=== PATIENT | female | born 1945 | race African-American/Black ===

== ENCOUNTER 2017-10-09 09:32 | Inpatient (IN) | payer OTHER ==
[2017-09-26 14:31] VITALS: BMI 34.0
--- NOTE | 2017-09-26 15:01 | PAT Medication Instructions ---
Service Date Sep 26, 2017. Current Home Medication List Albuterol Hfa (Ventolin Hfa), 2-4 PUFFS INH Q6H PRN for SOB/Wheezing Amlodipine (Norvasc), 10 MG PO QAM Fish Oil ([place]-3), 1 CAP PO QAM Ysmeqgrvwmg-Vzhabjnkgzk-Ewq C- (Glucosamine Chondroitin), 1,500 UNITS PO QAM Hydralazine Hcl (Apresoline), 1 TAB PO BID Multivitamin (Multivitamin), 1 TAB PO QAM Omeprazole (Prilosec), 20 MG PO QPM Oxybutynin Chloride (Ditropan), 5 MG PO QPM Medication Instructions For Your Scheduled Surgery - Hold the following medications 2 weeks prior to surgery: Fish Oil ([place]-3), 1 CAP PO QAM Fzjzjcqywts-Vkmfxmbluhb-Unc C- (Glucosamine Chondroitin), 1,500 UNITS PO QAM - Hold the following medications the morning of surgery: Multivitamin (Multivitamin), 1 TAB PO QAM - Take the following medications the morning of surgery with a sip of water: Albuterol Hfa (Ventolin Hfa), 2-4 PUFFS INH Q6H PRN for SOB/Wheezing (if needed , and bring it with you to the hospital) Amlodipine (Norvasc), 10 MG PO QAM Hydralazine Hcl (Apresoline), 1 TAB PO BID - Take the following medications as scheduled the night before surgery: Albuterol Hfa (Ventolin Hfa), 2-4 PUFFS INH Q6H PRN for SOB/Wheezing (if needed) Hydralazine Hcl (Apresoline), 1 TAB PO BID Omeprazole (Prilosec), 20 MG PO QPM Oxybutynin Chloride (Ditropan), 5 MG PO QPM If you have any questions please call us at [phone] or [phone] or [phone]
--- NOTE | 2017-09-26 16:05 | DIAGNOSTIC IMAGING REPORT ---
TWO VIEW CHEST CLINICAL HISTORY: Preoperative examination. FINDINGS: PA and lateral chest radiographs are obtained No prior studies are available for comparison at the time of dictation. The cardiomediastinal silhouette is unremarkable. There is atherosclerotic calcification of the thoracic aorta. There are low lung volumes and bibasilar atelectasis. Scattered calcified granulomas are observed. No airspace consolidation is seen typical for pneumonia and there is no pleural effusion. There is no pneumothorax. The skeletal structures are osteopenic. Degenerative change is noted throughout the thoracic spine. A surgical anchor is noted in the left humeral head. IMPRESSION: Low lung volumes with no active disease in the chest. Electronically signed by: Shakir Laura M.D. 09/26/2017 4:04 PM Dictated Date/Time: 09/26/2017 4:03 PM
[2017-09-26 16:15] LABS: BASO % 0.2 %; BASO ABS # 0.01 K/uL (0-0.2); EOS % 1.6 %; EOS ABS # 0.08 K/uL (0-0.5); HEMOGLOBIN 13.8 g/dL (12.0-16.0); IG# 0.01 K/uL (0.00-0.02); LYMPH % 38.6 %; LYMPH ABS # 1.96 K/uL (1.2-3.4); MEAN CORPUSCULAR HGB CONC 32.9 g/dl (32-36); MEAN PLATELET VOLUME 10.4 fL (7.4-10.4); MONO % 7.7 %; MONO ABS # 0.39 K/uL (0.11-0.59); NEUT % 51.7 %; NEUT ABS # 2.63 K/uL (1.4-6.5); PLATELET COUNT 247 K/uL (130-400); RED CELL DISTRIBUTION WIDTH CV 14.9 % (11.5-14.5); RED CELL DISTRIBUTION WIDTH SD 44.8 fL (36.4-46.3); WHITE BLOOD COUNT 5.08 K/uL (4.8-10.8)
[2017-09-26 16:22] LABS: CALCIUM 9.3 mg/dl (8.5-10.1); CREATININE 1.06 mg/dl (0.60-1.20); POTASSIUM 4.1 mmol/L (3.5-5.1)
[~2017-10-09] VITALS: Ht 165.1 cm; Wt 93.8 kg
[~2017-10-09 09:32] MED LIST: ACETAMINOPHEN 500 MG TAB PO SCH; AMLO-114 PO; CEFAZOLIN 2000MG IV PUSH 15 ML IV SCH; CeleBREX 200 MG CAP PO SCH; DTR/5 PO; GABAPENTIN 300 MG CAP PO SCH; GLUC1CAP35 PO; HYDR-4715 PO; LACTATED RINGER'S 1000ML 1,000 ML IV SCH; MULT-506 PO; OMEG10007 PO; PRLSR20 PO; VNTHFA/IN INH
[2017-10-09 10:15] VITALS: BP 182/81; PULSE 59; TEMP 36.8; O2SAT 97; Ht 165.1 cm; Wt 93.8 kg
[2017-10-09] MEDS ORDERED: ONDANSETRON INJ 2 MG/ML 2 ML VIAL ONE ×2 (10:27→13:30)
[2017-10-09] MEDS ORDERED: NEOSTIGMINE METHYLSULFATE 1 MG/ML 10ML VIAL ONE (10:27)
[2017-10-09] MEDS ORDERED: LIDOCAINE HCL 2% 2 ML VIAL (20MG/ML) ONE (10:27)
[2017-10-09] MEDS ORDERED: EpHEDrine SULFATE 50MG/5ML SYR ONE (10:27)
[2017-10-09] MEDS ORDERED: PROPOFOL IV EMULSION 10 MG/ML 20 ML VIAL ONE (10:27)
[2017-10-09] MEDS ORDERED: DEXAMETHASONE SOD INJ 4 MG/ML VIAL ONE (10:27)
[2017-10-09] MEDS ORDERED: ROCURONIUM BROMIDE 10 MG/ML 5 ML VIAL ONE (10:27)
[2017-10-09] MEDS ORDERED: PHENYLEPHRINE 100MCG/ML 5ML SYR ONE (10:27)
[2017-10-09] MEDS ORDERED: LARYING-O-JET KIT (LTA) ONE (10:27)
[2017-10-09] MEDS ORDERED: GLYCOPYRROLATE INJ 0.2 MG/ML VIAL ONE (10:27)
[2017-10-09] MEDS ORDERED: FENTANYL CITRATE INJ 50 MCG/1 ML 2 ML VIAL ONE (10:28)
[2017-10-09] MEDS ORDERED: MIDAZOLAM HCL 1 MG/ML 2ML VIAL ONE (10:28)
[2017-10-09] MEDS ORDERED: SIMV20TA2 PO (10:29)
[2017-10-09] MEDS ORDERED: DILT-113 PO (10:29)
[2017-10-09] MEDS ORDERED: SCOPOLAMINE 1.5 MG TDSY TD ONE (11:44)
[2017-10-09] MEDS ORDERED: BACITRACIN 50000 UNIT VIAL ONE (12:30)
[2017-10-09] MEDS ORDERED: EpINEphrine INJ 1MG/ML AMP 1 MG/ML AMP ONE (12:31)
[2017-10-09] MEDS ORDERED: BUPIVACAINE 0.5 % 5 MG/1 ML MPF 30ML VIAL ONE (12:31)
--- NOTE | 2017-10-09 12:32 | History & Physical Bridge Note ---
H&P Re-Evaluation Bridge Note: I have examined the patient, reviewed the History & Physical and in the interval since the performance of the History & Physical I have noted the following changes of clinical significance: No changes noted
--- NOTE | 2017-10-09 12:33 | History and Physical ---
History & Physical Date October 09, 2017. Chief Complaint Back and leg pain History of Present Illness The patient is a 72 year old female with complaints of back and leg pain Additional History Hepatic Disease: No Endocrine Disorder: No Kidney Disease: No Hypertension: Yes Heart Disease: No Bleeding Tendencies: No Infectious Diseases: No Allergies Coded Allergies: No Known Allergies (Verified , 10/09/17) Home Medications Scheduled Amlodipine (Norvasc), 10 MG PO QAM Diltiazem Hcl Ext Rel (Tiazac), 180 MG PO QAM Fish Oil ([place]-3), 1 CAP PO QAM Uzhzcltldwp-Ullnouqpxum-Jmm C- (Glucosamine Chondroitin), 1,500 UNITS PO QAM Hydralazine Hcl (Apresoline), 1 TAB PO BID Multivitamin (Multivitamin), 1 TAB PO QAM Oxybutynin Chloride (Ditropan), 5 MG PO QPM Simvastatin (Zocor), 20 MG PO QPM Scheduled PRN Albuterol Hfa (Ventolin Hfa), 2-4 PUFFS INH Q6H PRN for SOB/Wheezing Physical Examination Skin: warm/dry, no rash Eyes: normal inspection, EOMI, sclerae normal ENT: normal ENT inspection, pharynx normal Head: normocephalic, atraumatic Neck: supple, no adenopathy, trachea midline Respiratory/Chest: lungs clear, normal breath sounds, no respiratory distress Cardiovascular: regular rate, rhythm, no edema, no murmur Abdomen / GI: normal bowel sounds, non tender Back: normal inspection Extremities: normal inspection, normal range of motion Neurologic/Psych: no motor/sensory deficits, alert, normal reflexes, oriented x 3 Diagnosis Lumbar spinal stenosis with neurogenic claudication Plan of Treatment L3-S1 decompression and fusion
[2017-10-09] MEDS ORDERED: HYDROmorphone INJ 2 MG/ML SYR/VIAL ONE (13:29)
[2017-10-09] MEDS ORDERED: FLOSEAL HEMOSTATIC MATRIX 10ML TOP ONE (14:55)
[2017-10-09] MEDS ORDERED: SODIUM CHLORIDE 0.9% 1000ML 1,000 ML IV SCH (15:09)
--- NOTE | 2017-10-09 15:09 | [facility] Operative Report ---
Operative Report Operative Date October 09, 2017. Pre-Operative Diagnosis Lumbar spinal stenosis with neurogenic claudication Post-Operative Diagnosis same as preop Procedure(s) Performed 1. Lumbar decompression medial facetectomies foraminotomies L2-3 L3-4 L4-5. #2 posterior spinal fusion L3-4 L4-5. #3 placement of posterior segmental instrumentation L3-4 L4-5. #4 interbody fusion L4-5. #5 placement of titanium cage 12 x 26 mm at L4-5. #6 placement of locally harvested autograft in the posterior lateral gutters. #7 placement InFUSE collagen sponge, mass graft in the posterior lateral gutters and ostial amp in the interbody space. Surgeon Dr. Tam Henriqeuz Sales Support Advisor Surgeon(s) Cait Fritz PA-C Estimated Blood Loss 200ml Findings Severe spinal stenosis with spondylolisthesis Specimens None per Surgeon Anesthesia Type General Description of Procedure Patient was met with preoperatively case discussed all questions addressed. After informed consent obtained patient was taken to the operative suite underwent intubation and placed in a prone position the Rene table on top of the Bacilio frame. All bony prominences well-padded eyes inspected to ensure no external pressure placed upon the. This point the lumbar spine was prepped and draped in normal sterile fashion. Sharp dissection with the assistance of Bovie cautery was performed on November exposing the lamina and transverse processes of L3-L4 and L5 bilaterally. From a caudal to cephalad fashion complete laminectomy of L4 L3 and partial laminectomy of L2 is performed addressing severe lateral recess and foraminal stenosis. Pedicle screws in place and L3-L4-L5 bilaterally with the assistance of fluoroscopy and the purposes dale placed. Through a transforaminal approach on the right knee discectomy of L4-5 was performed endplates created to subcortical bleeding bone and a 12 x 26 mm titanium cage filled with ostial amp bone graft tapped in position. The rods then compressed locked into final position bilaterally. The transverse processes of L3-L4-L5 burred to subcortical bleeding bone. Infuse collagen sponge mass graft and local autograft placed in the posterior gutters. A 15 round LUIS drain inserted. Incision was then closed with 1 Vicryl fascia 2-0 Vicryl subcutaneous and 4 Monocryl for fashion closure Steri-Strips sterile dressings placed. Patient will continue PACU stable condition. Please note Cait Reilly was present throughout the entire procedure involved in patient positioning complex portions of the surgery and fashion closure. I attest to the content of the Intraoperative Record and any orders documented therein. Any exceptions are noted below.
[2017-10-09] MEDS ORDERED: NALOXONE HCL 0.4 MG/1 ML VIAL/CARP IV PRN (15:15)
[2017-10-09] MEDS ORDERED: DO NOT ADMINISTER FLU VACCINE PRN (15:15)
[2017-10-09] MEDS ORDERED: FAMOTIDINE 20 MG TAB PO PRN (15:15)
[2017-10-09] MEDS ORDERED: HYDROmorphone HCL 0.5MG/ML 50 ML CASSETTE IV PRN (15:15)
[2017-10-09] MEDS ORDERED: METOCLOPRAMIDE HCL INJ 5 MG/ML 2 ML VIAL IV PRN (15:15)
[2017-10-09] MEDS ORDERED: ALUMINUM/MAGNESIUM SUSP 30 ML UDC PO PRN (15:15)
[2017-10-09] MEDS ORDERED: PROMETHAZINE HCL INJ 12.5 MG in SODIUM CHLORIDE 0.9% 50ML 50 ML IV PRN (15:15)
[2017-10-09] MEDS ORDERED: DO NOT ADMINISTER PNEUMOCOCCAL VACCINE PRN (15:15)
[2017-10-09] MEDS ORDERED: hydrOXYzine HCL 25 MG TAB PO PRN (15:15)
[2017-10-09] MEDS ORDERED: ALBUTEROL HFA 8 GM INHALER INH PRN (15:15)
[2017-10-09] MEDS ORDERED: LORAZEPAM INJ 0.5 MG in SYRINGE 0.75 ML IV PRN (15:15)
[2017-10-09] MEDS ORDERED: ACETAMINOPHEN IV 100 ML IV PRN (15:15)
[2017-10-09] MEDS ORDERED: LORAZEPAM 0.5 MG TAB PO PRN (15:15)
[2017-10-09] MEDS ORDERED: SOD PHOSPHATE/SOD BIPHOSPHATE ENEMA 132 ML BTL PR PRN (15:15)
--- NOTE | 2017-10-09 15:28 | DIAGNOSTIC IMAGING REPORT ---
LUMBAR SPINE 2 OR 3 VIEW CLINICAL HISTORY: L3-S1 DECOMPRESION/FUSION COMPARISON STUDY: No previous studies for comparison. FINDINGS: 3 intraoperative fluoroscopic spot images are provided for interpretation. 19 seconds of fluoroscopic time was utilized. There are postsurgical changes at L4-5 discectomy and interbody fusion. There is posterior pedicle screw fixation with L3-L4 and L5 pedicle screws with adjoining spinal rods. IMPRESSION: Intraoperative fluoroscopic spot images demonstrating postsurgical changes at the L3-L5 levels. Electronically signed by: Ji Kumar M.D. 10/09/2017 3:26 PM Dictated Date/Time: 10/09/2017 3:25 PM
[2017-10-09] MEDS ORDERED: HYDROmorphone HCL 0.5MG/ML 50 ML CASSETTE ONE (15:30)
[2017-10-09] MEDS ORDERED: ONDANSETRON INJ 2 MG/ML 2 ML VIAL IV PRN (16:00)
[2017-10-09] MEDS ORDERED: EpHEDrine SULFATE INJ 50 MG/ML AMP IV PRN (16:00)
[2017-10-09] MEDS ORDERED: FENTANYL CITRATE INJ 50 MCG/1 ML 2 ML VIAL IV PRN (16:00)
[2017-10-09] MEDS ORDERED: HYDROmorphone INJ 1 MG/ML SYR IV PRN (16:00)
[2017-10-09] MEDS ORDERED: LABETALOL HCL IV 5 MG/ML 20ML IV PRN (16:00)
[2017-10-09] MEDS ORDERED: MEPERIDINE HCL 25 MG/ML CARP IV PRN (16:00)
[2017-10-09] MEDS ORDERED: ATROPINE SULFATE 0.1 MG/ML 5ML SYR IV PRN (16:00)
[2017-10-09 16:40] VITALS: BP 126/99; PULSE 55; TEMP 36.4; O2SAT 99
--- NOTE | 2017-10-09 16:59 | Anesthesiology Progress Note ---
Anesthesia Post Op Note Date & Time October 09, 2017 at 16:59 Vital Signs Pain Intensity: 0 Vital Signs Past 12 Hours Date Time Temp Pulse Resp B/P (MAP) Pulse Ox O2 Delivery O2 Flow Rate FiO2 10/09/17 16:30 56 18 146/64 99 Nasal Cannula 4 10/09/17 16:15 36.2 59 20 160/64 99 Nasal Cannula 4 10/09/17 16:05 63 19 140/71 99 Nasal Cannula 4 10/09/17 15:55 61 17 148/65 99 Oxymask 6 10/09/17 15:45 66 18 153/67 100 Oxymask 10 10/09/17 15:35 60 19 153/63 100 Oxymask 10 10/09/17 15:26 36.2 80 16 167/69 100 Oxymask 10 10/09/17 10:15 36.8 59 20 182/81 97 Room Air Notes Mental Status: alert / awake / arousable, participated in evaluation Pt Amnestic to Procedure: Yes Nausea / Vomiting: adequately controlled Pain: adequately controlled Airway Patency, RR, SpO2: stable & adequate BP & HR: stable & adequate Hydration State: stable & adequate Anesthetic Complications: no major complications apparent
[2017-10-09] MEDS: ONDANSETRON INJ 2 MG/ML 2 ML VIAL IV PRN (17:37)
[2017-10-09 17:46] VITALS: BP 125/74; PULSE 62; TEMP 36.4; O2SAT 97
[2017-10-09 18:37] VITALS: BP 133/77; PULSE 64; TEMP 36.4; O2SAT 97
--- NOTE | 2017-10-09 18:55 | Medical Consult ---
Consultation Date of Consultation: October 09, 2017. Attending Physician: Tam Henriquez D.O. Reason for Consultation: Medical management for HTN, CKD III, Asthma, GERD, HLP History of Present Illness Patient is a 72 yr female with PMH of HTN, HLP, CKD III, Asthma, GERD, Overactive bladder and lumbar spinal stenosis and other problems presents for elective lumbar decompression and fusion. Patient is a poor historian and has poor insight of her medical history. Patient underwent decompression and fusion of L3-S1 by . Patient is seen and examined after the surgery. She reports nausea and had an episode of vomiting. Reports back pain is controlled but worsens with movement. Denies any history of chest pain, SOB, dizziness, pedal edema, cough, wheezing, fever, headache, abdominal pain, diarrhea, dysuria. Past Medical/Surgical History PMH of HTN, HLP, CKD III, Asthma, GERD, Overactive bladder and lumbar spinal stenosis Family History Not relevant Social History Smoking Status: Never Smoker Alcohol Use: socially Drug Use: none Allergies Coded Allergies: No Known Allergies (Verified , 10/09/17) Home Medications Reviewed Current Inpatient Medications Current Inpatient Medications Medications (Trade) Dose Ordered Sig/Madiha Route Start Time Stop Time Status Last Admin Dose Admin Lactated Ringer's 1,000 ml @ 15 mls/hr Q24H IV 10/09/17 06:00 10/10/17 05:59 10/09/17 10:14 15 MLS/HR Promethazine HCl 12.5 mg/Sodium Chloride 50.5 ml @ 202 mls/hr Q6H PRN IV 10/09/17 15:15 11/08/17 15:14 Ondansetron HCl (Zofran Inj) 4 mg Q6H PRN IV 10/09/17 15:15 11/08/17 15:14 10/09/17 17:37 4 MG Metoclopramide HCl (Reglan Inj) 10 mg Q6H PRN IV 10/09/17 15:15 11/08/17 15:14 Lorazepam (Ativan Tab) 0.5 mg Q8H PRN PO 10/09/17 15:15 11/08/17 15:14 Lorazepam 0.5 mg/ Syringe 1 ml @ 1 mls/min Q8H PRN IV 10/09/17 15:15 11/08/17 15:14 Pneumococcal Polysaccharide Vaccine 1 ea PRN PRN N/A 10/09/17 15:15 11/08/17 15:14 Influenza Virus Vacc Triv Types A&B 1 ea PRN PRN N/A 10/09/17 15:15 11/08/17 15:14 Polyethylene (Miralax Powder Packet) 17 gm Q6 PO 10/11/17 06:00 11/10/17 05:59 Bisacodyl (Dulcolax Supp) 10 mg DAILY PRN UT 10/09/17 15:15 11/08/17 15:14 Magnesium Hydroxide (Milk Of Magnesia Susp) 30 ml DAILY PRN PO 10/09/17 15:15 11/08/17 15:14 Hydromorphone HCl (Dilaudid Inj) 0.5-1mg prn moder... Q3H PRN IV 10/10/17 06:00 10/24/17 05:59 Oxycodone HCl (Roxicodone Immediate Rel Tab) 5-10mg prn moderate to sev... Q4H PRN PO 10/10/17 06:00 10/24/17 05:59 Cefazolin Sodium 2000 mg/Syringe 15 ml @ 3.75 mls/ min Q8H IV 10/09/17 20:00 10/10/17 04:38 Lactated Ringer's 1,000 ml @ 150 mls/hr Q6H40M IV 10/09/17 17:00 11/08/17 16:59 Acetaminophen (Tylenol Tab) 1,000 mg Q8H PRN PO 10/09/17 15:15 11/08/17 15:14 Acetaminophen 100 ml @ 400 mls/hr Q8H PRN IV 10/09/17 15:15 11/08/17 15:14 Naloxone HCl (Narcan Inj) 0.1 mg Q5M PRN IV 10/10/17 06:00 11/09/17 05:59 Senna/Docusate Sodium (Senokot S Tab) 2 tab HS PO 10/09/17 21:00 11/08/17 20:59 Sodium Biphosphate/ Sodium Phosphate (Fleet Enema) 132 ml ONE PRN UT 10/09/17 15:15 11/08/17 15:14 Hydroxyzine HCl (Vistaril Tab) 25 mg Q8H PRN PO 10/09/17 15:15 11/08/17 15:14 Al Hydroxide/Mg Hydroxide (Maalox Susp) 30 ml Q6H PRN PO 10/09/17 15:15 11/08/17 15:14 Famotidine (Pepcid Tab) 20 mg Q12 PRN PO 10/09/17 15:15 11/08/17 15:14 Diphenhydramine HCl (Benadryl Cap) 25 mg Q6H PRN PO 10/09/17 15:15 11/08/17 15:14 Miscellaneous Information (Discontinue MACHINE DYER) 1 ea TODAY@0600 N/A 10/10/17 06:00 10/10/17 06:01 Naloxone HCl (Narcan Inj) 0.1 mg Q5M PRN IV 10/09/17 15:15 10/10/17 06:00 Hydromorphone HCl (Dilaudid Title Supervisor) 25 mg PRN PRN IV 10/09/17 15:15 10/10/17 06:00 10/09/17 16:43 25 MG Sodium Chloride 1,000 ml @ 15 mls/hr Q24H IV 10/09/17 15:09 10/10/17 06:00 Albuterol (Ventolin Hfa Inhaler) 2 puffs Q6H PRN INH 10/09/17 15:15 11/08/17 15:14 Amlodipine Besylate (Norvasc Tab) 10 mg QAM PO 10/10/17 09:00 11/09/17 08:59 Diltiazem HCl (TIAzac CAP) 180 mg QAM PO 10/10/17 09:00 11/09/17 08:59 Hydralazine HCl (Apresoline Tab) 10 mg BID PO 10/09/17 21:00 11/08/17 20:59 Oxybutynin Chloride (Ditropan Tab) 5 mg QPM PO 10/09/17 21:00 11/08/17 20:59 Simvastatin (Zocor Tab) 20 mg QPM PO 10/09/17 21:00 11/08/17 20:59 Fentanyl Citrate (Fentanyl Inj) 50 mcg Q5M PRN IV 10/09/17 16:00 10/09/17 21:00 Hydromorphone HCl (Dilaudid Inj) 0.5 mg Q5M PRN IV 10/09/17 16:00 10/09/17 21:00 Meperidine HCl (Demerol Inj) 25 mg Q5M PRN IV 10/09/17 16:00 10/09/17 21:00 Ondansetron HCl (Zofran Inj) 4 mg ONE PRN IV 10/09/17 16:00 10/09/17 21:00 Labetalol HCl (Normodyne IV) 5 mg Q5M PRN IV 10/09/17 16:00 10/09/17 21:00 Ephedrine Sulfate (EpHEDrine SULFATE INJ) 5 mg Q5M PRN IV 10/09/17 16:00 10/09/17 21:00 Atropine Sulfate (Atropine Sulfate 0.1mg/ml Inj) 0.5 mg Q1M PRN IV 10/09/17 16:00 10/09/17 21:00 Review of Systems See HPI for pertinent positives & negatives. A total of 10 systems reviewed and were otherwise negative. Physical Exam Date Time Temp Pulse Resp B/P (MAP) Pulse Ox O2 Delivery O2 Flow Rate FiO2 10/09/17 18:37 36.4 64 16 133/77 (95) 97 Nasal Cannula 2.0 10/09/17 17:46 36.4 62 16 125/74 (91) 97 Nasal Cannula 2.0 10/09/17 16:40 36.4 55 16 126/99 (108) 99 Nasal Cannula 4.0 10/09/17 16:30 56 18 146/64 99 Nasal Cannula 4 10/09/17 16:15 36.2 59 20 160/64 99 Nasal Cannula 4 10/09/17 16:05 63 19 140/71 99 Nasal Cannula 4 10/09/17 15:55 61 17 148/65 99 Oxymask 6 10/09/17 15:45 66 18 153/67 100 Oxymask 10 10/09/17 15:35 60 19 153/63 100 Oxymask 10 10/09/17 15:26 36.2 80 16 167/69 100 Oxymask 10 10/09/17 10:15 36.8 59 20 182/81 97 Room Air General Appearance: WD/WN, no apparent distress Head: normocephalic, atraumatic Eyes: normal inspection, PERRL, EOMI, sclerae normal ENT: normal ENT inspection, hearing grossly normal Neck: supple, trachea midline Respiratory/Chest: chest non-tender, lungs clear, normal breath sounds, no respiratory distress, no accessory muscle use Cardiovascular: regular rate, rhythm, no edema, no murmur Abdomen/GI: normal bowel sounds, non tender, soft Back: normal inspection, + pertinent finding (Surgical site in Bandage, tender) Extremities/Musculoskelatal: normal inspection, no pedal edema Neurologic/Psych: guard rail installer II-XII nml as tested, no motor/sensory deficits, alert, normal mood/affect, oriented x 3 Skin: normal color, warm/dry Laboratory Results Lumbar X ray: Intraoperative fluoroscopic spot images demonstrating postsurgical changes at the L3-L5 levels. CXR: Low lung volumes with no active disease in the chest Assessment & Plan Lumbar spinal stenosis: S/P decompression and fusion by Pain control Bowel regimen for constipation Monitor for post OP anemia PT/OT, DVT Px per primary team Continue SCDs HTN: Stable Continue Amlodipine, Hydralazine monitor CKD III: monitor renal function Avoid Nephrotoxic agents H/O Asthma: No signs of Exacerbation Nebs PRN GERD: Continue PPI H/O Overactive bladder Stable DVT Px: SCDs per Primary team Code Status: Full Code Disposition: Per Primary Team
[2017-10-09] MEDS: LACTATED RINGER'S 1000ML 1,000 ML IV SCH (19:14)
[2017-10-09 19:38] VITALS: BP 138/76; PULSE 65; TEMP 36.4; O2SAT 99
[2017-10-09] MEDS: DOCUSATE SODIUM/SENNA 50/8.6MG TAB PO SCH (20:52)
[2017-10-09] MEDS: HydrALAZINE 10 MG TAB PO SCH (20:52)
[2017-10-09] MEDS: OXYBUTYNIN CHLORIDE 5 MG TAB PO SCH (20:52)
[2017-10-09] MEDS: SIMVASTATIN 20 MG TAB PO SCH (20:52)
[2017-10-09] MEDS: CEFAZOLIN IV 2,000 MG in SYRINGE 0 ML IV SCH (20:53)
[2017-10-09 23:11] VITALS: BP 145/78; PULSE 67; TEMP 36.7; O2SAT 100
[2017-10-10] MEDS: LACTATED RINGER'S 1000ML 1,000 ML IV SCH ×2 (00:45→06:20)
[2017-10-10] MEDS ORDERED: COUGH DROP (SUGAR FREE) LOZ 24 LOZ/1 BOX LOZ ONE (00:59)
[2017-10-10] MEDS ORDERED: COUGH DROP (SUGAR FREE) LOZ 24 LOZ/1 BOX LOZ PRN (01:15)
[2017-10-10 03:20] VITALS: BP 131/70; PULSE 60; TEMP 36.7; O2SAT 100
[2017-10-10] MEDS: CEFAZOLIN IV 2,000 MG in SYRINGE 0 ML IV SCH (04:03)
[2017-10-10] MEDS ORDERED: DC PCA SCH (06:00)
[2017-10-10] MEDS ORDERED: NALOXONE HCL 0.4 MG/1 ML VIAL/CARP IV PRN (06:00)
[2017-10-10] MEDS ORDERED: HYDROmorphone INJ 0.5 MG/0.5 ML SYR IV PRN (06:00)
[2017-10-10] MEDS ORDERED: NURSING VERBAL MED ORDER ONE (06:30)
[2017-10-10 06:35] LABS: HEMATOCRIT 35.7 % (37-47); HEMOGLOBIN 11.4 g/dL (12.0-16.0); IG# 0.02 K/uL (0.00-0.02); LYMPH % 6.6 %; LYMPH ABS # 0.63 K/uL (1.2-3.4); MEAN CELL VOLUME 82.6 fL (80-100); MEAN CORPUSCULAR HEMOGLOBIN 26.4 pg (25-34); MEAN CORPUSCULAR HGB CONC 31.9 g/dl (32-36); MEAN PLATELET VOLUME 9.9 fL (7.4-10.4); MONO % 3.8 %; MONO ABS # 0.36 K/uL (0.11-0.59); NEUT % 89.4 %; NEUT ABS # 8.51 K/uL (1.4-6.5); PLATELET COUNT 197 K/uL (130-400); RED CELL DISTRIBUTION WIDTH CV 14.9 % (11.5-14.5); RED CELL DISTRIBUTION WIDTH SD 45.6 fL (36.4-46.3); WHITE BLOOD COUNT 9.52 K/uL (4.8-10.8)
[2017-10-10 07:12] LABS: CALCIUM 8.2 mg/dl (8.5-10.1); CREATININE 1.27 mg/dl (0.60-1.20); POTASSIUM 4.3 mmol/L (3.5-5.1)
[2017-10-10] MEDS: OXYCODONE HCL IR 5 MG TAB (IMMEDIATE RELEASE) PO PRN ×2 (07:34→18:31)
[2017-10-10 07:51] VITALS: BP 168/71; PULSE 57; TEMP 36.6; O2SAT 98
[2017-10-10] MEDS ORDERED: KETOROLAC TROMETHAMINE 15 MG/ML VIAL IV PRN (08:30)
[2017-10-10] MEDS: HydrALAZINE 10 MG TAB PO SCH ×2 (08:38→20:47)
[2017-10-10] MEDS: PANTOprazole SOD 40 MG TAB PO SCH (08:38)
[2017-10-10] MEDS: AMLODIPINE BESYLATE 5 MG TAB PO SCH (08:39)
--- NOTE | 2017-10-10 08:56 | Progress Note ---
Progress Note Date of Service October 10, 2017. Progress Note Patient's back pain is well controlled. Leg symptoms improved. Vital signs stable. On exam she is in the chair at the bedside is good strength testing appears comfortable. Assessment status post lumbar decompression fusion per plan at this time will continue physical therapy advance her bowel regiment anticipate home the next few days.
[2017-10-10] MEDS ORDERED: DILTIAZEM HCL (TIAzac) 180 MG CAPCR PO SCH (09:00)
[2017-10-10 10:59] VITALS: BP 156/72; PULSE 53; TEMP 37.3; O2SAT 96
[2017-10-10 14:56] VITALS: BP 151/69; PULSE 55; TEMP 37; O2SAT 96
[2017-10-10] MEDS ORDERED: RXC5 PO (17:38)
--- NOTE | 2017-10-10 17:39 | Discharge Instructions ---
Discharge Instructions Date of Service October 10, 2017. Admission Reason for Admission: Lumbar Spinal Stenosis Discharge Discharge Diagnosis / Problem: lumbar stenosis Discharge Goals Goal(s): Improve function Activity Recommendations Activity Limitations: per Instructions/Follow-up section . Instructions / Follow-Up Instructions / Follow-Up ACTIVITY RECOMMENDATIONS: SELF CARE INSTRUCTIONS AFTER THORACIC/LUMBAR FUSIONS 1. You may walk to your tolerance. It is good exercise for your legs and back. Expect some back and intermittent leg aches and pains. 2. You may perform "counter-top" level activities (make a sandwich, bautista with a project, etc.). 3. No bending or lifting of more than 10 pounds or back twisting of any nature (roll like a log when turning in bed). 4. You may ride in a car for 20-30 minutes at a time. No driving until after your first visit with your doctor. 5. Frequent changes of position and restricting sitting to 30 minutes at a time will help limit the amount of back spasms and stiffness you may experience. 6. You may discontinue the use of ambulatory aids (cane, crutches, etc.) once your strength and confidence allow. 7. You may tank systems maintainer the shower and let water strike your incision when you arrive home at least once daily. Do not take a tub bath, sit in a hot tub or go into a swimming pool until after your first recheck in the office. SPECIAL CARE INSTRUCTIONS: VERY IMPORTANT TO READ AND REVIEW A. Your surgical incision has been closed with a cosmetic suture under the skin that will dissolve in about 6 weeks. In 14 days, you can use a pair of clean scissors and cut the suture that is left outside of the skin at the ends of your incision. 1. The small skin tapes can be removed 7 days after surgery if they have not fallen off by that point. 2. You may keep the wound open to air as much as possible to promote healing after post-op day number 5 unless told otherwise by your doctor. 3. If you think the wound looks like it is becoming infected (redness or worsening drainage) and/or you are experiencing fever, chill or worsening back pain and muscle spasms, contact the office so that we may evaluate you as soon as possible. B. Complications are uncommon, but please contact us if you have any signs or symptoms of: 1. wound infection (fever higher than 102.5 degrees F, redness, separation of wound, drainage, or increasing pain from the incision) 2. blood clots in legs (pain, swelling, redness and warmth in legs) 3. urinary tract infection (fever higher than 102.5 degrees F, burning upon urination or increased frequency of urination) 4. nerve problems (inability to walk on your toes or heels, numbness, loss of bowel or bladder control) 5. any other symptoms that concern you C. Please call the office at if you have any concerns or questions about your operation or recovery. D. No smoking! Smoking drastically decreases the chance of a solid fusion. E. Do not take any anti-inflammatory medications (Indocin, Advil, Motrin, Aspirin, Naprosyn, etc.) as these may inhibit the chance of a solid fusion. Tylenol is okay to take for pain. MANAGING PAIN AFTER SPINAL SURGERY 1. Narcotic medication is intended for short-term use and will be provided for surgical pain. Surgical pain usually lasts for a period of 4-6 weeks. Narcotic medication includes Percocet, Vicodin, Darvocet, Tylenol #3 or Lortab. 2. Longer-term pain is more appropriately treated with non-narcotic medication such as Tylenol ES. 3. Muscle spasm is not appropriately treated with narcotics. Muscle relaxers such as Soma, Flexeril or Skelaxin can be used along with Tylenol ES. 4. Remember that we all live with some "aches and pains". This is not unusual or uncommon after an injury or as we get older. a. Back pain is expected and may include muscle spasms for 4 to 6 weeks after surgery. The pain should gradually improve. If the pain worsens for no apparent reason, please contact the office. b. Intermittent leg pain may also be experienced and should not be concerned about unless it worsens for no apparent reason. If so, please contact the office. 5. We will provide appropriate medication within the normal guidelines of their prescribed use. We will also be very cautious and aware of potential abuse and extended duration of patients' medication needs. a. Pain medications are for your comfort and to assist with sleep and rest so that the tissue can heal. They are not provided in order to return to normal activity and should not be used through the day. To do so or worsening pain at night can result from ongoing tissue damage and development of tolerance to the prescribed medicine. 6. Please allow 2-3 days to process refills. Prescriptions will not be mailed but must be picked up at the office. FOLLOW UP VISIT: Keep your scheduled follow-up appointment. Any questions, please call the office at . Current Hospital Diet Patient's current hospital diet: Regular Diet Discharge Diet Recommended Diet: Regular Diet Procedures Procedures Performed: 1. Lumbar decompression medial facetectomies foraminotomies L2-3 L3-4 L4-5. #2 posterior spinal fusion L3-4 L4-5. #3 placement of posterior segmental instrumentation L3-4 L4-5. #4 interbody fusion L4-5. #5 placement of titanium cage 12 x 26 mm at L4-5. #6 placement of locally harvested autograft in the posterior lateral gutters. #7 placement InFUSE collagen sponge, mass graft in the posterior lateral gutters and ostial amp in the interbody space. Pending Studies Studies pending at discharge: no Medical Emergencies . Who to Call and When: Medical Emergencies: If at any time you feel your situation is an emergency, please call 911 immediately. . Non-Emergent Contact Non-Emergency issues call your: Primary Care Provider . "Provider Documentation" section prepared by Tam Henriquez. .
--- NOTE | 2017-10-10 17:42 | Progress Note ---
Internal Med Progress Note Date of Service: October 10, 2017. Provider Documentation: SUBJECTIVE: Seen and examined at bedside Complains of back pain at surgical site Denies chest pain, SOB, dizziness, abd pain Nausea/vomiting resolved No other complaints Family at bedside OBJECTIVE: Vital Signs-as noted below General Appearance: WD/WN, no apparent distress Head: normocephalic, atraumatic Eyes: normal inspection, PERRL, EOMI, sclerae normal ENT: normal ENT inspection, hearing grossly normal Neck: supple, trachea midline Respiratory/Chest: chest non-tender, lungs clear, normal breath sounds, no respiratory distress, no accessory muscle use Cardiovascular: regular rate, rhythm, no edema, no murmur Abdomen/GI: normal bowel sounds, non tender, soft Back: normal inspection, + Surgical site in Bandage Extremities/Musculoskelatal: normal inspection, no pedal edema 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 ASSESSMENT & PLAN: Lumbar spinal stenosis: S/P decompression and fusion by POD # 1 Pain control Bowel regimen for constipation Monitor for post OP anemia PT/OT, DVT Px per primary team Continue SCDs Hb:11.4 today HTN: Sinus Bradycardia BP elevated likely secondary to pain Continue Amlodipine, Hydralazine monitor CKD III: Cr slightly elevated Hold Toradol monitor renal function Avoid Nephrotoxic agents as able Elevated Blood glucose levels: Likely secondary to steroids Monitor BGs H/O Asthma: No signs of Exacerbation Nebs PRN GERD: Continue PPI H/O Overactive bladder Stable DVT Px: per Primary team Code Status: Full Code Disposition: Per Primary Team Vital Signs: Date Time Temp Pulse Resp B/P (MAP) Pulse Ox O2 Delivery O2 Flow Rate FiO2 10/10/17 14:56 37.0 55 16 151/69 (96) 96 Room Air 10/10/17 10:59 37.3 53 19 156/72 (100) 96 Room Air 10/10/17 07:51 36.6 57 18 168/71 (103) 98 Room Air 10/10/17 07:40 Room Air 10/10/17 03:20 36.7 60 15 131/70 (90) 100 Nasal Cannula 2.0 10/10/17 00:00 Nasal Cannula 2.0 10/09/17 23:11 36.7 67 16 145/78 (100) 100 Nasal Cannula 2.0 10/09/17 19:38 36.4 65 20 138/76 (96) 99 Nasal Cannula 2.0 10/09/17 18:37 36.4 64 16 133/77 (95) 97 Nasal Cannula 2.0 Lab Results: Results Past 24 Hours Test 10/10/17 06:21 Range/Units White Blood Count 9.52 4.8-10.8 K/uL Red Blood Count 4.32 4.2-5.4 M/uL Hemoglobin 11.4 12.0-16.0 g/dL Hematocrit 35.7 37-47 % Mean Corpuscular Volume 82.6 80-100 fL Mean Corpuscular Hemoglobin 26.4 25-34 pg Mean Corpuscular Hemoglobin Concent 31.9 32-36 g/dl Platelet Count 197 130-400 K/uL Mean Platelet Volume 9.9 7.4-10.4 fL Neutrophils (%) (Auto) 89.4 % Lymphocytes (%) (Auto) 6.6 % Monocytes (%) (Auto) 3.8 % Eosinophils (%) (Auto) 0.0 % Basophils (%) (Auto) 0.0 % Neutrophils # (Auto) 8.51 1.4-6.5 K/uL Lymphocytes # (Auto) 0.63 1.2-3.4 K/uL Monocytes # (Auto) 0.36 0.11-0.59 K/uL Eosinophils # (Auto) 0.00 0-0.5 K/uL Basophils # (Auto) 0.00 0-0.2 K/uL RDW Standard Deviation 45.6 36.4-46.3 fL RDW Coefficient of Variation 14.9 11.5-14.5 % Immature Granulocyte % (Auto) 0.2 % Immature Granulocyte # (Auto) 0.02 0.00-0.02 K/uL Sodium Level 136 136-145 mmol/L Potassium Level 4.3 3.5-5.1 mmol/L Chloride Level 103 98-107 mmol/L Carbon Dioxide Level 25 21-32 mmol/L Anion Gap 8.0 3-11 mmol/L Blood Urea Nitrogen 15 7-18 mg/dl Creatinine 1.27 0.60-1.20 mg/dl Est Creatinine Clear Calc Drug Dose 44.0 ml/min Estimated GFR () 48.1 Estimated GFR (Non- 41.5 BUN/Creatinine Ratio 11.5 10-20 Random Glucose 160 70-99 mg/dl Calcium Level 8.2 8.5-10.1 mg/dl Magnesium Level 2.0 1.8-2.4 mg/dl
[2017-10-10] MEDS: SIMVASTATIN 20 MG TAB PO SCH (20:47)
[2017-10-10] MEDS: OXYBUTYNIN CHLORIDE 5 MG TAB PO SCH (20:47)
[2017-10-10] MEDS: DOCUSATE SODIUM/SENNA 50/8.6MG TAB PO SCH (20:47)
[2017-10-10 23:10] VITALS: BP 147/63; PULSE 73; TEMP 37.9; O2SAT 94
[2017-10-10] MEDS: ACETAMINOPHEN 500 MG TAB PO PRN (23:27)
[2017-10-11 00:54] VITALS: TEMP 37.6
[2017-10-11] MEDS: POLYETHYLENE (MIRALAX) 17 GM PACK PO SCH ×4 (05:28→23:54)
[2017-10-11 05:32] VITALS: TEMP 36.9
[2017-10-11 06:01] VITALS: BP 167/80; PULSE 62; TEMP 37; O2SAT 97
[2017-10-11 06:26] LABS: HEMATOCRIT 34.7 % (37-47); HEMOGLOBIN 11.2 g/dL (12.0-16.0); MEAN CELL VOLUME 82.2 fL (80-100); MEAN CORPUSCULAR HEMOGLOBIN 26.5 pg (25-34); MEAN CORPUSCULAR HGB CONC 32.3 g/dl (32-36); MEAN PLATELET VOLUME 9.9 fL (7.4-10.4); PLATELET COUNT 188 K/uL (130-400); RED CELL DISTRIBUTION WIDTH CV 15.3 % (11.5-14.5); RED CELL DISTRIBUTION WIDTH SD 45.5 fL (36.4-46.3); WHITE BLOOD COUNT 9.29 K/uL (4.8-10.8)
[2017-10-11 07:04] LABS: CALCIUM 8.4 mg/dl (8.5-10.1); CREATININE 1.23 mg/dl (0.60-1.20); POTASSIUM 4.1 mmol/L (3.5-5.1)
[2017-10-11] MEDS: ONDANSETRON INJ 2 MG/ML 2 ML VIAL IV PRN ×2 (07:27→17:46)
[2017-10-11] MEDS: OXYCODONE HCL IR 5 MG TAB (IMMEDIATE RELEASE) PO PRN (07:28)
[2017-10-11] MEDS: PANTOprazole SOD 40 MG TAB PO SCH (07:28)
[2017-10-11] MEDS: AMLODIPINE BESYLATE 5 MG TAB PO SCH (07:29)
[2017-10-11] MEDS: HydrALAZINE 10 MG TAB PO SCH ×2 (08:00→22:12)
[2017-10-11] MEDS ORDERED: KETOROLAC TROMETHAMINE 15 MG/ML VIAL IV. STA (10:24)
--- NOTE | 2017-10-11 13:25 | Progress Note ---
Progress Note Date of Service October 11, 2017. Progress Note Patient's back pain is controlled leg pain improved. Vital signs stable. LUIS drain decreasing appropriately. On exam she is good strength testing appears comfortable. Assessment status post lumbar decompression fusion plan at this time will continue with pain management physical therapy maintain the LUIS drain. Anticipate possible home tomorrow.
[2017-10-11 15:17] VITALS: BP 117/67; PULSE 67; TEMP 36.9; O2SAT 94
--- NOTE | 2017-10-11 19:36 | Progress Note ---
Internal Med Progress Note Date of Service: October 11, 2017. Provider Documentation: SUBJECTIVE: Seen and examined at bedside Back pain is controlled Denies chest pain, SOB, dizziness Reports mild abd pain discomfort, No BM yet +Flatus Denies Nausea/vomiting No other complaints OBJECTIVE: Vital Signs-as noted below General Appearance: WD/WN, no apparent distress Head: normocephalic, atraumatic Eyes: normal inspection, PERRL, EOMI, sclerae normal ENT: normal ENT inspection, hearing grossly normal Neck: supple, trachea midline Respiratory/Chest: chest non-tender, lungs clear, normal breath sounds, no respiratory distress, no accessory muscle use Cardiovascular: regular rate, rhythm, no edema, no murmur Abdomen/GI: normal bowel sounds, non tender, soft Back: normal inspection, + Surgical site in Bandage Extremities/Musculoskelatal: normal inspection, no pedal edema 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 ASSESSMENT & PLAN: Lumbar spinal stenosis: S/P decompression and fusion by POD # 2 Pain is controlled Bowel regimen for constipation Monitor for post OP anemia PT/OT, DVT Px per primary team Continue SCDs Hb:11.2 today HTN: Sinus Bradycardia BP better Continue Amlodipine, Hydralazine monitor CKD III: Cr slightly elevated Hold Toradol monitor renal function Avoid Nephrotoxic agents as able Elevated Blood glucose levels: Likely secondary to steroids Monitor BGs H/O Asthma: No signs of Exacerbation Nebs PRN GERD: Continue PPI H/O Overactive bladder Stable DVT Px: per Primary team Code Status: Full Code Disposition: Per Primary Team Vital Signs: Date Time Temp Pulse Resp B/P (MAP) Pulse Ox O2 Delivery O2 Flow Rate FiO2 10/11/17 15:45 Room Air 10/11/17 15:17 36.9 67 18 117/67 (84) 94 Room Air 10/11/17 07:30 Room Air 10/11/17 06:01 37.0 62 16 167/80 (109) 97 Room Air 10/11/17 05:32 36.9 10/11/17 00:54 37.6 10/10/17 23:10 37.9 73 18 147/63 (91) 94 Room Air 10/10/17 20:00 Room Air Lab Results: Results Past 24 Hours Test 10/11/17 06:13 Range/Units White Blood Count 9.29 4.8-10.8 K/uL Red Blood Count 4.22 4.2-5.4 M/uL Hemoglobin 11.2 12.0-16.0 g/dL Hematocrit 34.7 37-47 % Mean Corpuscular Volume 82.2 80-100 fL Mean Corpuscular Hemoglobin 26.5 25-34 pg Mean Corpuscular Hemoglobin Concent 32.3 32-36 g/dl RDW Standard Deviation 45.5 36.4-46.3 fL RDW Coefficient of Variation 15.3 11.5-14.5 % Platelet Count 188 130-400 K/uL Mean Platelet Volume 9.9 7.4-10.4 fL Sodium Level 140 136-145 mmol/L Potassium Level 4.1 3.5-5.1 mmol/L Chloride Level 107 98-107 mmol/L Carbon Dioxide Level 26 21-32 mmol/L Anion Gap 8.0 3-11 mmol/L Blood Urea Nitrogen 19 7-18 mg/dl Creatinine 1.23 0.60-1.20 mg/dl Est Creatinine Clear Calc Drug Dose 45.4 ml/min Estimated GFR () 50.0 Estimated GFR (Non- 43.2 BUN/Creatinine Ratio 15.4 10-20 Random Glucose 124 70-99 mg/dl Calcium Level 8.4 8.5-10.1 mg/dl Magnesium Level 2.2 1.8-2.4 mg/dl
[2017-10-11] MEDS: OXYBUTYNIN CHLORIDE 5 MG TAB PO SCH (22:12)
[2017-10-11] MEDS: DOCUSATE SODIUM/SENNA 50/8.6MG TAB PO SCH (22:13)
[2017-10-11] MEDS: SIMVASTATIN 20 MG TAB PO SCH (22:13)
[2017-10-11 23:07] VITALS: BP 155/80; PULSE 75; TEMP 36.6; O2SAT 93
[2017-10-11 23:41] VITALS: BP 128/64; PULSE 66; TEMP 36.7; O2SAT 99
[2017-10-12] MEDS: MAGNESIUM HYDROXIDE SUSP 30 ML UDC PO PRN (02:20)
[2017-10-12] MEDS: POLYETHYLENE (MIRALAX) 17 GM PACK PO SCH ×3 (06:34→18:00)
[2017-10-12 06:46] VITALS: BP 148/76; PULSE 65; TEMP 37.4; O2SAT 95
[2017-10-12 06:59] LABS: CALCIUM 8.1 mg/dl (8.5-10.1); CREATININE 0.76 mg/dl (0.60-1.20); POTASSIUM 4.1 mmol/L (3.5-5.1)
[2017-10-12] MEDS: PANTOprazole SOD 40 MG TAB PO SCH (09:24)
[2017-10-12] MEDS: HydrALAZINE 10 MG TAB PO SCH ×2 (09:25→21:06)
[2017-10-12] MEDS: AMLODIPINE BESYLATE 5 MG TAB PO SCH (09:25)
[2017-10-12] MEDS: OXYCODONE HCL IR 5 MG TAB (IMMEDIATE RELEASE) PO PRN ×3 (09:28→21:13)
[2017-10-12 09:37] VITALS: BP 138/80; PULSE 78; O2SAT 98
--- NOTE | 2017-10-12 09:57 | Progress Note ---
Progress Note Date of Service October 12, 2017. Progress Note Patient's complaining of back pain. No leg pain. She is yet to have a bowel movement. She is uncomfortable. Vital signs are stable. LUIS drain decreasing appropriately. Assessment status post lumbar decompression fusion per plan at this time we will maintain the LUIS drain another 24 hours. Continue to advance her bowel regiment. We will also like to consider rehab if she qualifies.
[2017-10-12] MEDS: BISACODYL 10 MG SUPP PR PRN (12:53)
[2017-10-12 15:21] VITALS: BP 150/82; PULSE 80; TEMP 36.9; O2SAT 96
--- NOTE | 2017-10-12 15:25 | Progress Note ---
Internal Med Progress Note Date of Service: October 12, 2017. Provider Documentation: SUBJECTIVE: Seen and examined at bedside Back pain is controlled but concerned to be discharged home family services assistant consulted to see if patient qualifies for Rehab Had small BM today Denies chest pain, SOB, dizziness Denies Nausea/vomiting Family at bedside No other complaints OBJECTIVE: Vital Signs-as noted below General Appearance: WD/WN, no apparent distress Head: normocephalic, atraumatic Eyes: normal inspection, PERRL, EOMI, sclerae normal ENT: normal ENT inspection, hearing grossly normal Neck: supple, trachea midline Respiratory/Chest: chest non-tender, lungs clear, normal breath sounds, no respiratory distress, no accessory muscle use Cardiovascular: regular rate, rhythm, no edema, no murmur Abdomen/GI: normal bowel sounds, non tender, soft Back: normal inspection, + Surgical site in Bandage, +LUIS drain Extremities/Musculoskelatal: normal inspection, no pedal edema 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 ASSESSMENT & PLAN: Lumbar spinal stenosis: S/P decompression and fusion by POD # 3 Pain is controlled Bowel regimen for constipation Monitor for post OP anemia PT/OT, DVT Px per primary team Continue SCDs Encourage to ambulate Hb stable HTN: Sinus Bradycardia BP labile Continue Amlodipine, Hydralazine monitor CKD III: Cr back to baseline Hold Toradol monitor renal function Avoid Nephrotoxic agents as able Elevated Blood glucose levels: Likely secondary to steroids Monitor BGs H/O Asthma: No signs of Exacerbation Nebs PRN GERD: Continue PPI H/O Overactive bladder Stable DVT Px: per Primary team Code Status: Full Code Disposition: Per Primary Team family services assistant consulted Vital Signs: Date Time Temp Pulse Resp B/P (MAP) Pulse Ox O2 Delivery O2 Flow Rate FiO2 10/12/17 09:37 78 98 10/12/17 08:15 Room Air 10/12/17 06:46 37.4 65 16 148/76 (100) 95 Room Air 10/12/17 00:30 Room Air 10/11/17 23:41 36.7 66 20 128/64 (85) 99 Room Air 10/11/17 23:07 36.6 75 20 155/80 (105) 93 Room Air 10/11/17 15:45 Room Air Lab Results: Results Past 24 Hours Test 10/12/17 06:10 Range/Units Sodium Level 139 136-145 mmol/L Potassium Level 4.1 3.5-5.1 mmol/L Chloride Level 104 98-107 mmol/L Carbon Dioxide Level 29 21-32 mmol/L Anion Gap 6.0 3-11 mmol/L Blood Urea Nitrogen 13 7-18 mg/dl Creatinine 0.76 0.60-1.20 mg/dl Est Creatinine Clear Calc Drug Dose 73.5 ml/min Estimated GFR () 89.6 Estimated GFR (Non- 77.3 BUN/Creatinine Ratio 17.0 10-20 Random Glucose 112 70-99 mg/dl Calcium Level 8.1 8.5-10.1 mg/dl Magnesium Level 2.2 1.8-2.4 mg/dl
[2017-10-12] MEDS: SIMVASTATIN 20 MG TAB PO SCH (21:06)
[2017-10-12] MEDS: OXYBUTYNIN CHLORIDE 5 MG TAB PO SCH (21:06)
[2017-10-12] MEDS: DOCUSATE SODIUM/SENNA 50/8.6MG TAB PO SCH (21:06)
[2017-10-12 23:10] VITALS: BP 149/80; PULSE 75; TEMP 37.9; O2SAT 96
[2017-10-12 23:13] VITALS: TEMP 37
[2017-10-12] MEDS ORDERED: NURSING VERBAL MED ORDER ONE (23:15)
[2017-10-13 05:47] LABS: HEMATOCRIT 33.1 % (37-47); HEMOGLOBIN 10.6 g/dL (12.0-16.0)
[2017-10-13 06:05] VITALS: BP 137/70; PULSE 73; TEMP 37.8; O2SAT 96
[2017-10-13 06:08] LABS: CALCIUM 7.9 mg/dl (8.5-10.1); CREATININE 0.89 mg/dl (0.60-1.20); POTASSIUM 4.5 mmol/L (3.5-5.1)
[2017-10-13] MEDS: PANTOprazole SOD 40 MG TAB PO SCH (08:17)
[2017-10-13] MEDS: AMLODIPINE BESYLATE 5 MG TAB PO SCH (08:18)
[2017-10-13] MEDS: HydrALAZINE 10 MG TAB PO SCH ×2 (08:18→20:28)
[2017-10-13] MEDS: BISACODYL 10 MG SUPP PR PRN (09:59)
--- NOTE | 2017-10-13 10:44 | Progress Note ---
Progress Note Date of Service October 13, 2017. Progress Note Patient's back pain is controlled. She did have a bowel movement yesterday. She is ambulating with therapy reasonably well. Vital signs are stable LUIS drain decreased appropriately. Plan at this time will DC the drain today we are awaiting approval for rehab. Hopefully she will be able to be discharged tomorrow.
[2017-10-13 11:36] VITALS: BP 128/68; PULSE 78; O2SAT 98
[2017-10-13 15:11] VITALS: BP 133/71; PULSE 83; TEMP 37.8; O2SAT 94
--- NOTE | 2017-10-13 15:24 | Progress Note ---
Internal Med Progress Note Date of Service: October 13, 2017. Provider Documentation: SUBJECTIVE: Seen and examined at bedside Back pain is improved Had small BM today Denies chest pain, SOB, dizziness Low grade fever today LUIS drain removed Family at bedside No other complaints OBJECTIVE: Vital Signs-as noted below General Appearance: WD/WN, no apparent distress Head: normocephalic, atraumatic Eyes: normal inspection, PERRL, EOMI, sclerae normal ENT: normal ENT inspection, hearing grossly normal Neck: supple, trachea midline Respiratory/Chest: normal breath sounds, CTA Cardiovascular: regular rate, rhythm, no edema, no murmur Abdomen/GI: normal bowel sounds, non tender, soft Back: normal inspection, + Surgical site in Bandage Extremities/Musculoskelatal: normal inspection, no pedal edema 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 ASSESSMENT & PLAN: Lumbar spinal stenosis: S/P decompression and fusion by POD # 4 Pain is controlled Bowel regimen for constipation Monitor for post OP anemia PT/OT, DVT Px per primary team Continue SCDs Encourage to ambulate Hb stable HTN: Sinus Bradycardia Stable Continue Amlodipine, Hydralazine monitor CKD III: Cr back to baseline Hold Toradol monitor renal function Avoid Nephrotoxic agents as able Elevated Blood glucose levels: Likely secondary to steroids Monitor BGs H/O Asthma: No signs of Exacerbation Nebs PRN GERD: Continue PPI H/O Overactive bladder Stable DVT Px: per Primary team Code Status: Full Code Disposition: Per Primary Team social services technician consulted Vital Signs: Date Time Temp Pulse Resp B/P (MAP) Pulse Ox O2 Delivery O2 Flow Rate FiO2 10/13/17 15:11 37.8 83 16 133/71 (91) 94 Room Air 10/13/17 11:36 78 98 10/13/17 08:00 Room Air 10/13/17 06:05 37.8 73 18 137/70 (92) 96 Room Air 10/12/17 23:35 Room Air 10/12/17 23:13 37.0 10/12/17 23:10 37.9 75 18 149/80 (103) 96 Room Air 10/12/17 15:35 Room Air Lab Results: Results Past 24 Hours Test 10/13/17 05:33 Range/Units Hemoglobin 10.6 12.0-16.0 g/dL Hematocrit 33.1 37-47 % Sodium Level 137 136-145 mmol/L Potassium Level 4.5 3.5-5.1 mmol/L Chloride Level 104 98-107 mmol/L Carbon Dioxide Level 29 21-32 mmol/L Anion Gap 4.0 3-11 mmol/L Blood Urea Nitrogen 13 7-18 mg/dl Creatinine 0.89 0.60-1.20 mg/dl Est Creatinine Clear Calc Drug Dose 62.8 ml/min Estimated GFR () 74.0 Estimated GFR (Non- 63.8 BUN/Creatinine Ratio 15.0 10-20 Random Glucose 91 70-99 mg/dl Calcium Level 7.9 8.5-10.1 mg/dl Magnesium Level 2.3 1.8-2.4 mg/dl
[2017-10-13] MEDS: SIMVASTATIN 20 MG TAB PO SCH (20:28)
[2017-10-13] MEDS: DOCUSATE SODIUM/SENNA 50/8.6MG TAB PO SCH (20:28)
[2017-10-13] MEDS: OXYBUTYNIN CHLORIDE 5 MG TAB PO SCH (20:28)
[2017-10-13 23:06] VITALS: BP 160/86; PULSE 80; TEMP 38.1; O2SAT 93
[2017-10-13 23:46] VITALS: TEMP 37.7
[2017-10-13] MEDS: OXYCODONE HCL IR 5 MG TAB (IMMEDIATE RELEASE) PO PRN (23:55)
[2017-10-14 04:21] VITALS: BP 144/64; PULSE 77; TEMP 37.6
[2017-10-14] MEDS: MAGNESIUM HYDROXIDE SUSP 30 ML UDC PO PRN (04:23)
[2017-10-14] MEDS: ACETAMINOPHEN 500 MG TAB PO PRN (04:24)
[2017-10-14 05:37] LABS: BASO % 0.1 %; BASO ABS # 0.01 K/uL (0-0.2); EOS % 2.5 %; EOS ABS # 0.19 K/uL (0-0.5); HEMATOCRIT 32.1 % (37-47); HEMOGLOBIN 10.4 g/dL (12.0-16.0); IG# 0.02 K/uL (0.00-0.02); LYMPH % 29.5 %; LYMPH ABS # 2.23 K/uL (1.2-3.4); MEAN CELL VOLUME 81.5 fL (80-100); MEAN CORPUSCULAR HEMOGLOBIN 26.4 pg (25-34); MEAN CORPUSCULAR HGB CONC 32.4 g/dl (32-36); MONO % 7.4 %; MONO ABS # 0.56 K/uL (0.11-0.59); NEUT % 60.2 %; NEUT ABS # 4.54 K/uL (1.4-6.5); PLATELET COUNT 202 K/uL (130-400); RED CELL DISTRIBUTION WIDTH CV 14.8 % (11.5-14.5); RED CELL DISTRIBUTION WIDTH SD 44.1 fL (36.4-46.3); WHITE BLOOD COUNT 7.55 K/uL (4.8-10.8)
[2017-10-14 06:27] VITALS: BP 131/72; PULSE 68; TEMP 37.4; O2SAT 95
[2017-10-14] MEDS: AMLODIPINE BESYLATE 5 MG TAB PO SCH (07:11)
[2017-10-14] MEDS: HydrALAZINE 10 MG TAB PO SCH (07:12)
[2017-10-14 10:23] VITALS: BP 131/72; PULSE 68; TEMP 37.4; O2SAT 95
--- NOTE | 2017-10-14 15:54 | Discharge Summary ---
Orthopedic Discharge Summary Admission Date/Reason October 09, 2017 at 12:00 Lumbar Spinal Stenosis. Discharge Date/Disposition October 14, 2017 Home with services Diagnosis Principal Diagnosis: Lumbar spinal stenosis Admission Physical Exam As per Admitting History & Physical. Hospital Course Patient with lumbar decompression fusion tolerated well and taken to the orthopedic floor possibly. Postop day #1 she was up and amatory progressed the postop day #2 had some issues with constipation but through management was able to improve postop day #3 and forceps with the discharge home with home health. Discharge orders and instructions found in the chart for review. Discharge Instructions Please refer to the electronic Patient Visit Report (Discharge Instructions) for additional information.
== END 2017-10-14 12:44 | disposition home health service (06) | DRG 455 ==
LOC: C.ACU 09:32 → C.3E 12:00 → ENRESERV 16:08
PROVIDERS: ADMIT Orthopaedic Surgery Orthopaedic Surgery of the Spine; ATTEND Orthopaedic Surgery Orthopaedic Surgery of the Spine
PROC: 0SG00AJ Fusion of Lumbar Vertebral Joint with Interbody Fusion Device, Posterior Approach, Anterior Column, Open Approach (ICD-10-PCS; principal; 2017-10-09 09:30)
PROC: 0SG1071 Fusion of 2 or more Lumbar Vertebral Joints with Autologous Tissue Substitute, Posterior Approach, Posterior Column, Open Approach (ICD-10-PCS; principal; 2017-10-09 09:30)
DX: M48.062 Spinal stenosis, lumbar region with neurogenic claudication (principal); M43.16 Spondylolisthesis, lumbar region; I12.9 Hypertensive chronic kidney disease with stage 1 through stage 4 chronic kidney disease, or unspecified chronic kidney disease; N18.3 Chronic kidney disease, stage 3 (moderate); J45.909 Unspecified asthma, uncomplicated; E78.5 Hyperlipidemia, unspecified; N32.81 Overactive bladder; K59.00 Constipation, unspecified; R00.1 Bradycardia, unspecified